=== PATIENT | female | born 1985 | race Caucasian/White ===

== ENCOUNTER 2016-12-28 13:09 | Inpatient (IN) | payer OTHER ==
[~2016-12-28] VITALS: Ht 152.4 cm; Wt 86.6 kg
[2016-12-28 13:28] LABS: HCT 30.9 % (37.0-47.0); MCH 24.6 pg (25.0-31.0); MCHC 32.4 g/dL (32.0-36.0); MCV 76.1 fL (78.0-100.0); MPV 11.3 fL (6.0-9.5); RBC 4.06 M/uL (4.20-5.40); RDW 16.8 % (11.5-14.0); WBC 9.1 K/uL (4.0-10.5)
[2016-12-28 15:38] LABS: BILIRUBIN NEGATIVE (NEGATIVE); BLOOD 2+ Ery/uL (NEGATIVE); CLARITY CLEAR (CLEAR); COLOR YELLOW (YELLOW); GLUCOSE (U) NORMAL (NORMAL); KETONE (U) NEGATIVE (NEGATIVE); LEUKOCYTES 2+ Leu/uL (NEGATIVE); NITRITE NEGATIVE (NEGATIVE); PROTEIN NEGATIVE (NEGATIVE); UROBILINOGEN 0.2 mg/dL (0.2-1.0)
[2016-12-28 15:45] LABS: BACTERIA TRACE
[2016-12-28 15:50] LABS: AMPHETAMINES NEGATIVE (NEGATIVE); BENZODIAZEPINES NEGATIVE (NEGATIVE); COCAINE NEGATIVE (NEGATIVE); MARIJUANA (THC) NEGATIVE (NEGATIVE)
[2016-12-28 15:51] LABS: BARBITURATES NEGATIVE (NEGATIVE); METHADONE NEGATIVE (NEGATIVE); TRICYCLIC ANTIDEPRESSANT NEGATIVE (NEGATIVE)
[2016-12-28 18:30] LABS: BILIRUBIN NEGATIVE (NEGATIVE); BLOOD NEGATIVE Ery/uL (NEGATIVE); CLARITY SLIGHTLY HAZY (CLEAR); COLOR YELLOW (YELLOW); GLUCOSE (U) NORMAL (NORMAL); KETONE (U) NEGATIVE (NEGATIVE); LEUKOCYTES NEGATIVE Leu/uL (NEGATIVE); NITRITE NEGATIVE (NEGATIVE); PROTEIN NEGATIVE (NEGATIVE); SPECIFIC GRAVITY <=1.005 (1.001-1.030); UROBILINOGEN 0.2 mg/dL (0.2-1.0)
[2016-12-29 08:31] LABS: HGB 8.7 g/dl (12.5-16.0); MCH 24.9 pg (25.0-31.0); MCHC 32.2 g/dL (32.0-36.0); MCV 77.1 fL (78.0-100.0); MPV 12.4 fL (6.0-9.5); RBC 3.5 M/uL (4.20-5.40); RDW 16.8 % (11.5-14.0); WBC 11.7 K/uL (4.0-10.5)
== END 2016-12-30 14:26 | disposition home or self-care (01) | DRG 765 ==
LOC: FOD 13:09 → FOB 13:09 → FOD 15:14 → FOB 15:15
PROVIDERS: ADMIT Obstetrics & Gynecology
PROC: 10D00Z1 Extraction of Products of Conception, Low, Open Approach (ICD-10-PCS; principal; 2016-12-28 16:06)
DX: O36.63X0 Maternal care for excessive fetal growth, third trimester, not applicable or unspecified (principal); D62 Acute posthemorrhagic anemia; F41.9 Anxiety disorder, unspecified; Z3A.38 38 weeks gestation of pregnancy; Z37.0 Single live birth; M19.90 Unspecified osteoarthritis, unspecified site; M79.7 Fibromyalgia; O99.02 Anemia complicating childbirth; D50.9 Iron deficiency anemia, unspecified
CPT/HCPCS: 36415; 80305; 81001; 81003; 88307; J0456; J0690; J1885; J2274; J3010